=== PATIENT | female | born 1960 | race Caucasian/White ===

== ENCOUNTER 2022-06-25 19:29 | Emergency (ER) | payer OTHER ==
[~2022-06-25] VITALS: Ht 157.5 cm; Wt 59.0 kg
[2022-06-25 20:09] VITALS: BP 132/78
[2022-06-25] MEDS ORDERED: KETOROLAC TROMETHAMINE INJ 30 MG/ML VIAL IM ONE (20:30)
[2022-06-25] MEDS ORDERED: TRAMADOL HCL 50 MG TABLET PO ONE (20:30)
[2022-06-25] MEDS ORDERED: KETOROLAC TROMETHAMINE INJ 30 MG/ML VIAL ONE (20:34)
[2022-06-25] MEDS ORDERED: TRAMADOL HCL 50 MG TABLET ONE (20:34)
--- NOTE | 2022-06-25 21:12 | NUR ---
Patient discharged to home in stable condition. Written and verbal after care instructions given. Patient verbalizes understanding of instruction. Pt ambulatory with a steady gait
[2022-06-25] MEDS ORDERED: TRAM-351 PO (21:33)
[2022-06-25] MEDS ORDERED: IBUP-1957 PO (21:33)
== END 2022-06-25 21:13 | disposition home or self-care (01) ==
LOC: ER 19:32
DX: S82.142A Displaced bicondylar fracture of left tibia, initial encounter for closed fracture (principal); W01.0XXA Fall on same level from slipping, tripping and stumbling without subsequent striking against object, initial encounter; Y93.89 Activity, other specified; Y92.89 Other specified places as the place of occurrence of the external cause; Y99.8 Other external cause status
CPT/HCPCS: 99285; 29105; 73700; 73564; 96372; J1885